=== PATIENT | male | born 1965 | race Hispanic/Latino ===

== ENCOUNTER 2021-11-20 09:58 | Day surgery (SDC) | payer OTHER ==
[~2021-11-20] VITALS: Ht 157.5 cm; Wt 62.1 kg
[2021-11-20] MEDS ORDERED: 0.9%NACL 1000ML 1,000 ML IV ONE (11:05)
[2021-11-20 11:49] VITALS: BP 128/78
[2021-11-20] MEDS ORDERED: FURO40TA7 PO (12:25)
[2021-11-20] MEDS ORDERED: PROP10TA10 PO (12:25)
[2021-11-20] MEDS ORDERED: GLIP10TA19 PO (12:25)
[2021-11-20] MEDS ORDERED: SPIR100T5 PO (12:25)
[2021-11-20] MEDS ORDERED: ESOM40CA54 PO (12:25)
[2021-11-20] MEDS ORDERED: GABA-529 PO (12:25)
[2021-11-20] MEDS ORDERED: MELO-108 PO (12:25)
[2021-11-20] MEDS ORDERED: MVIT PO (12:25)
[2021-11-20] MEDS ORDERED: IRON (12:25)
[2021-11-20] MEDS ORDERED: PROPOFOL 10 MG/ML 20ML VIAL IV ONE (13:18)
== END 2021-11-20 14:05 | disposition home or self-care (01) ==
LOC: DAH 09:58 → ENDO 09:58
PROVIDERS: ATTEND Internal Medicine Gastroenterology
DX: I85.10 Secondary esophageal varices without bleeding (principal); K74.69 Other cirrhosis of liver; K76.6 Portal hypertension; K29.00 Acute gastritis without bleeding; E11.9 Type 2 diabetes mellitus without complications; I10 Essential (primary) hypertension; D69.59 Other secondary thrombocytopenia; Z80.0 Family history of malignant neoplasm of digestive organs; Z83.3 Family history of diabetes mellitus; Z79.899 Other long term (current) drug therapy; Z98.890 Other specified postprocedural states
CPT/HCPCS: 43239; 87635; A4215 ×2; A4221; A4222; A4223; A4606; A4620; A4663; A7002; J2704; J7030

== ENCOUNTER → 2022-02-26 | Outpatient (CLI) | payer OTHER ==
[~2022-02-26] MED LIST: ESOM40CA54 PO; FURO40TA7 PO; GABA-529 PO; GLIP10TA19 PO; IRON; MELO-108 PO; MVIT PO; PROP10TA10 PO; SPIR100T5 PO
[2022-02-26 09:29] LABS: BASOPHILS % (AUTO) 1.2 % (0.0-5.0); EOSINOPHILS % (AUTO) 2.7 % (0.0-8.0); LYMPHOCYTES % (AUTO) 28.8 % (21.0-51.0); MEAN CORPUSCULAR HEMOGLOBIN 33.9 pg (27.0-33.0); MEAN CORPUSCULAR HGB CONC 35.9 g/dL (32.0-36.0); MEAN CORPUSCULAR VOLUME 94.7 fL (79-99); MONOCYTES % (AUTO) 11.4 % (3.0-13.0); NEUTROPHILS % (AUTO) 55.7 % (40.0-77.0); PLATELET COUNT (AUTO) 133 K/uL (130-400); RED BLOOD CELL COUNT(AUTO) 4.33 MIL/uL (4.50-6.20); RED CELL DISTRIBUTION WIDTH 11.9 % (11.0-15.5)
[2022-02-26 09:47] LABS: INR 1.02 (0.85-1.15); PROTHROMBIN TIME 11.1 SEC (9.6-11.6)
[2022-02-26 09:49] LABS: ALBUMIN 3.9 g/dL (3.5-5.0); CREATININE 0.6 mg/dL (0.5-1.5); PARTIAL THROMBOPLASTIN TIME 28.1 SEC (26.3-35.5); POTASSIUM 4.5 mmol/L (3.5-5.1); TOTAL PROTEIN, SERUM 7.7 g/dL (6.0-8.3)
== END | disposition home or self-care (01) ==
LOC: LAB 08:36
PROVIDERS: ATTEND Internal Medicine Gastroenterology
DX: K74.60 Unspecified cirrhosis of liver (principal); R10.13 Epigastric pain
CPT/HCPCS: 36415; 80053; 82105; 82140; 85025; 85610; 85730; 86677